=== PATIENT | female | born 1990 | race Caucasian/White ===

== ENCOUNTER → 2021-01-23 16:40 | Outpatient (CLI) | payer OTHER, SELFPAY ==
[2021-01-23 14:41] VITALS: BMI 23.8
[2021-01-23 17:34] LABS: Amphetamine Urine VISTA NEGATIVE (<1000 ng/mL); Barbiturate Urine VISTA NEGATIVE (< 200 ng/mL); Benzodiazepine Urine VISTA NEGATIVE (< 200 ng/mL); Cocaine Urine VISTA NEGATIVE (< 300 ng/mL); Ecstacy Urine VISTA NEGATIVE (< 500 ng/mL); Methadone Urine VISTA NEGATIVE (< 300 ng/mL); PCP Urine VISTA NEGATIVE (< 25 ng/mL); THC Urine VISTA NEGATIVE (< 50 ng/mL); Vista UDS pH Range 5
[2021-01-26 20:07] LABS: Chlamydia By Nucleic Acid AMP Negative (Negative)
[2021-01-26 20:59] LABS: Gonococcus By Nucleic Acid AMP Negative (Negative)
[2021-01-27 13:25] LABS: HPV Reflexed? NOT INDICATED
== END ==
PROVIDERS: Referring Provider Obstetrics & Gynecology; Visit Provider Obstetrics & Gynecology
DX: Z34.80 Encounter for supervision of other normal pregnancy, unspecified trimester (principal); Z12.4 Encounter for screening for malignant neoplasm of cervix
CPT/HCPCS: 80307; 87086; 87088; 87491; 87591; 88175; G0145

== ENCOUNTER → 2021-02-12 10:40 | Outpatient (CLI) | payer OTHER, SELFPAY ==
[2021-01-23 14:41] VITALS: BMI 23.8
[2021-02-12 11:09] LABS: Absolute Lymphocyte Count 1.15 X10^3/uL (0.83-4.51); Absolute Neutrophil Count 4.6 X10^3/uL (2.0-7.7); Basophil# 0.02 X10^3/uL; Basophil% 0.3 % (0-1); Eosinophil# 0.03 X10^3/uL; Eosinophils% 0.5 % (0-5); Hematocrit 37.5 % (37-47); Hemoglobin 12.4 g/dL (12.0-15.0); Lymphocyte # 1.15 X10^3/ul (0.83-4.51); Lymphocyte % 18.8 % (19-41); Mean Corp Hgb Conc 33.1 g/dL (32-36); Mean Corpuscular Hgb 28.3 pg (27.0-32.0); Mean Corpuscular Volume 85.6 fL (81-99); Mean Platelet Vol. 11.6 fl (6.2-12.0); Monocyte# 0.34 X10^3/uL; Monocyte% 5.6 % (0-10); NRBC Flagged by Analyzer 0 % (0-5); Neutrophil # 4.55 X10^3/uL (2.7-7.7); Neutrophil % 74.5 % (47-70); Platelet Count 186 K/mm3 (150-450); RBC Distribution Width CV 12.1 % (11.6-14.6); RBC Distribution Width SD 37.6 fl (35.1-43.9); Red Blood Count 4.38 M/mm3 (4.2-5.4); White Blood Count 6.1 K/mm3 (4.4-11.0)
[2021-02-12 11:48] LABS: NATERA MAILED SPECIMEN
[2021-02-12 12:21] LABS: HIV - WCH Non-Reactive (Nonreactive); Hepatitis B Surface Antigen Non-Reactive (Nonreactive); Hepatitis C Antibody Non-Reactive (Nonreactive); Rubella IgG Reactive (Nonreactive); Syphilis Antibodies Non-reactive
== END ==
PROVIDERS: Referring Provider Obstetrics & Gynecology; Visit Provider Obstetrics & Gynecology
DX: Z34.81 Encounter for supervision of other normal pregnancy, first trimester (principal)
CPT/HCPCS: 36415; 85025; 86703; 86762; 86780; 86803; 86850; 86900; 86901; 87340

== ENCOUNTER → 2021-03-18 | Outpatient (CLI) | payer OTHER, SELFPAY ==
[2021-03-18 11:24] VITALS: BMI 23.8
== END | disposition home or self-care (01) ==
PROVIDERS: Visit Provider Nurse Practitioner Women's Health
DX: R30.9 Painful micturition, unspecified (principal)
CPT/HCPCS: 87077; 87086; 87088

== ENCOUNTER 2021-05-14 22:45 | Outpatient (CLI) | payer OTHER, SELFPAY ==
--- NOTE | 2021-05-14 23:01 | OB.TRI.PN ---
Progress Notes Date of Service: 05/14/21 Progress Note: Patient presents for triage evaluation secondary to vagianl bleeding FHT: 150 Moderate variability pos accel no decels GA appropriate [place]: no regular Contractions Assessment and plan: cervix closed reassuring fht, reassuring maternal and status patient discharged to home to follow-up as scheduled. See problem list details for additional plan information. Charges/Coding Visit Charges Office Visits / Consults: 36810 OV L2 Est Assessment & Plan (1) Vaginal bleeding during : COMMENT: seen in triage 05/14 likely cervical no labor, cervix closed dc home
[2021-05-14 23:12] VITALS: PULSE 101; TEMP 37; BMI 25.1
[2021-05-15 00:20] LABS: Color, Urine Yellow (Yellow); Glucose, Dipstick Normal (Normal); Ketone-Dipstick Negative (Negative); Leukocyte Esterase-Dipstick Negative /ul (Negative); Nitrite-Dipstick Negative (Negative); Occult Blood-Urine Negative /ul (Negative); Protein-Dipstick Negative (Negative); Urine Bilirubin Dipstick Negative (Negative); Urine Clarity Clear (Clear); Urine Urobilinogen Normal (Normal); Urine pH 6.5 (5.0 - 8.0)
== END 2021-05-14 23:55 | disposition home or self-care (01) ==
LOC: WPOUT 22:55 → OBT 22:55
PROVIDERS: Visit Provider Obstetrics & Gynecology
DX: O46.90 Antepartum hemorrhage, unspecified, unspecified trimester (principal); Z3A.00 Weeks of gestation of pregnancy not specified
CPT/HCPCS: 59025; 59050; 81002; 87086; 87088; 99218; G0378

== ENCOUNTER → 2021-06-03 09:50 | Outpatient (CLI) | payer OTHER, SELFPAY ==
[2021-06-03 10:26] LABS: Absolute Lymphocyte Count 1.18 X10^3/uL (0.83-4.51); Absolute Neutrophil Count 5.3 X10^3/uL (2.0-7.7); Basophil# 0.03 X10^3/uL; Basophil% 0.4 % (0-1); Eosinophil# 0.04 X10^3/uL; Eosinophils% 0.6 % (0-5); Hematocrit 32.6 % (37-47); Hemoglobin 10.9 g/dL (12.0-15.0); Lymphocyte # 1.18 X10^3/ul (0.83-4.51); Mean Corp Hgb Conc 33.4 g/dL (32-36); Mean Corpuscular Hgb 28.8 pg (27.0-32.0); Mean Corpuscular Volume 86.2 fL (81-99); Mean Platelet Vol. 12.2 fl (6.2-12.0); Monocyte# 0.35 X10^3/uL; Monocyte% 5.1 % (0-10); NRBC Flagged by Analyzer 0 % (0-5); Neutrophil # 5.31 X10^3/uL (2.7-7.7); Neutrophil % 76.6 % (47-70); Platelet Count 142 K/mm3 (150-450); RBC Distribution Width CV 11.9 % (11.6-14.6); RBC Distribution Width SD 37.7 fl (35.1-43.9); Red Blood Count 3.78 M/mm3 (4.2-5.4); White Blood Count 6.9 K/mm3 (4.4-11.0)
[2021-06-03 10:35] LABS: Glucose Challenge Gest 1H 50g 132 mg/dL (70-140)
== END ==
PROVIDERS: Referring Provider Obstetrics & Gynecology; Visit Provider Obstetrics & Gynecology
DX: Z13.1 Encounter for screening for diabetes mellitus (principal)
CPT/HCPCS: 36415; 82950; 85025

== ENCOUNTER → 2021-07-01 11:41 | Outpatient (CLI) | payer OTHER, SELFPAY ==
[2021-07-01 11:52] LABS: Absolute Lymphocyte Count 1.36 X10^3/uL (0.83-4.51); Absolute Neutrophil Count 6.4 X10^3/uL (2.0-7.7); Basophil# 0.02 X10^3/uL; Basophil% 0.2 % (0-1); Eosinophil# 0.02 X10^3/uL; Eosinophils% 0.2 % (0-5); Hematocrit 37.1 % (37-47); Hemoglobin 12.1 g/dL (12.0-15.0); Lymphocyte # 1.36 X10^3/ul (0.83-4.51); Lymphocyte % 16.4 % (19-41); Mean Corp Hgb Conc 32.6 g/dL (32-36); Mean Corpuscular Hgb 27.6 pg (27.0-32.0); Mean Corpuscular Volume 84.5 fL (81-99); Mean Platelet Vol. 12.4 fl (6.2-12.0); Monocyte# 0.43 X10^3/uL; Monocyte% 5.2 % (0-10); NRBC Flagged by Analyzer 0 % (0-5); Neutrophil # 6.43 X10^3/uL (2.7-7.7); Neutrophil % 77.5 % (47-70); Platelet Count 137 K/mm3 (150-450); RBC Distribution Width CV 12.2 % (11.6-14.6); RBC Distribution Width SD 37.2 fl (35.1-43.9); Red Blood Count 4.39 M/mm3 (4.2-5.4); White Blood Count 8.3 K/mm3 (4.4-11.0)
== END ==
PROVIDERS: Referring Provider Obstetrics & Gynecology; Visit Provider Obstetrics & Gynecology
DX: O99.019 Anemia complicating pregnancy, unspecified trimester (principal); D64.9 Anemia, unspecified; Z3A.00 Weeks of gestation of pregnancy not specified
CPT/HCPCS: 36415; 85025

== ENCOUNTER → 2021-07-29 11:34 | Outpatient (CLI) | payer OTHER, SELFPAY ==
[2021-07-29 12:01] LABS: Absolute Neutrophil Count 5.5 X10^3/uL (2.0-7.7); Basophil# 0.03 X10^3/uL; Basophil% 0.4 % (0-1); Eosinophil# 0.04 X10^3/uL; Eosinophils% 0.5 % (0-5); Hematocrit 34.7 % (37-47); Hemoglobin 11.2 g/dL (12.0-15.0); Lymphocyte % 18.7 % (19-41); Mean Corp Hgb Conc 32.3 g/dL (32-36); Mean Corpuscular Hgb 27.1 pg (27.0-32.0); Mean Platelet Vol. 12.2 fl (6.2-12.0); Monocyte# 0.49 X10^3/uL; Monocyte% 6.5 % (0-10); NRBC Flagged by Analyzer 0 % (0-5); Neutrophil # 5.51 X10^3/uL (2.7-7.7); Neutrophil % 73.5 % (47-70); Platelet Count 134 K/mm3 (150-450); RBC Distribution Width CV 12.4 % (11.6-14.6); RBC Distribution Width SD 37.9 fl (35.1-43.9); Red Blood Count 4.13 M/mm3 (4.2-5.4); White Blood Count 7.5 K/mm3 (4.4-11.0)
== END ==
PROVIDERS: Referring Provider Obstetrics & Gynecology; Visit Provider Obstetrics & Gynecology
DX: Z36.85 Encounter for antenatal screening for Streptococcus B (principal); O99.113 Other diseases of the blood and blood-forming organs and certain disorders involving the immune mechanism complicating pregnancy, third trimester; D69.6 Thrombocytopenia, unspecified; Z3A.35 35 weeks gestation of pregnancy
CPT/HCPCS: 36415; 85025; 87077; 87081; 87186

== ENCOUNTER 2021-08-13 04:35 | Inpatient (IN) | payer OTHER, SELFPAY ==
[2021-08-12 19:34] VITALS: BMI 27.7
[2021-08-12 19:38] VITALS: BP 128/89; PULSE 102; TEMP 36.4; O2SAT 98
[2021-08-12] MEDS: Acetaminophen 500 MG Tablet 1000 MG PO (20:47)
[2021-08-12] MEDS: Ondansetron 8 MG Tablet 4 MG PO (20:47)
[2021-08-12 22:55] VITALS: BP 123/79; PULSE 80; TEMP 36.3; O2SAT 100
[2021-08-12 23:07] LABS: Absolute Lymphocyte Count 1.61 X10^3/uL (0.83-4.51); Absolute Neutrophil Count 6.5 X10^3/uL (2.0-7.7); Basophil# 0.04 X10^3/uL; Basophil% 0.5 % (0-1); Eosinophil# 0.01 X10^3/uL; Eosinophils% 0.1 % (0-5); Hematocrit 33.2 % (37-47); Lymphocyte # 1.61 X10^3/ul (0.83-4.51); Lymphocyte % 18.4 % (19-41); Mean Corp Hgb Conc 33.1 g/dL (32-36); Mean Corpuscular Hgb 26.8 pg (27.0-32.0); Mean Platelet Vol. 12.9 fl (6.2-12.0); Monocyte# 0.58 X10^3/uL; Monocyte% 6.6 % (0-10); NRBC Flagged by Analyzer 0 % (0-5); Neutrophil # 6.46 X10^3/uL (2.7-7.7); Neutrophil % 74.1 % (47-70); Platelet Count 142 K/mm3 (150-450); RBC Distribution Width CV 12.6 % (11.6-14.6); RBC Distribution Width SD 37.3 fl (35.1-43.9); White Blood Count 8.7 K/mm3 (4.4-11.0)
[2021-08-13] VITALS (42 sets, daily range): BP systolic 93–116; BP diastolic 55–82; PULSE 6–111; RESP 18; TEMP 36.2–37.1; O2SAT 97–100
[2021-08-13] MEDS: 0.9 % NaCl (Sterile) Posiflush 10 mL IV ×3 (00:01→03:03)
[2021-08-13] MEDS: Lactated Ringers 1,000 ML 999 ML IV (03:03)
[2021-08-13] MEDS: Ondansetron 4 MG/2 ML Vial IV (06:55)
[2021-08-13] MEDS: 0.9% Saline Lock 10 ML Syringe IV (06:55)
[2021-08-13] MEDS: Lactated Ringers 1,000 ML 50 ML IV (07:00)
[2021-08-13] MEDS: Lactated Ringers 500 ML 999 ML IV (07:02)
--- NOTE | 2021-08-13 07:21 | HP.PCM.OB_ITS ---
HPI - General General Date of Admission: 08/13/21 HPI Narrative LIANG DISLA, is a 30 F who presents IAL regular ctx and made cervical change from 1-4 cm. she denies any vb or lof admits good fm Maternal Data Information MARILUZ Calculator Estimated Delivery Date Method Current WG Current Estimate 08/27/21 LMP (Certain) 38w 0d PFSH PFSH Medical History Choroid plexus cyst Home Medications prenat.vits,marc,[id number] 1 tab PO DAILY 01/22/21 [History Last Taken 08/11/21] Allergy/AdvReac Type Severity Reaction Status Date / Time Sulfa (Sulfonamide Allergy Intermediate hives Verified 08/12/21 19:51 Antibiotics) Family History Mother Endometriosis Father Hypertension Surgical History History of exploratory laparotomy Social History adopted: No household members: significant other, children and other details: BF Elfego has daughter number of children: 1 current occupational status: employed current occupation: [employer] pets and animals: Yes pets and animals: dog(s) Smoking Status: Never smoker alcohol intake: never substance use type: does not use History 2 Elective abortions Hx Para 1 Spontaneous abortions Hx # Term Pregnancies Ectopic pregnancies Hx # Pregnancies Multiple births # of living children 1 Past Pregnancies Del. Date Name GA/Weeks Outcome Route Bth Weight Infant Gen Labor Lgth Anesthesia Del Locatn Provider FOB 06/03/15 [facility] live - full term 6# 12oz Female 12 h our epidural Katie/[facility] [place] Delivery Date: 06/03/15 states episiotomy. Induced when 3cm and thin cervix Judy Mendez Visit Details Expected Delivery Route/Plan Labor Preferences- CB/BF classes: no labor support person: Elfego labor intervention preferences: none pain management options preferred: epidural cut cord/dad catch: yes : yes PP control planned: discussed discussed possible routes of delivery and associated risks: [] special requests: none, very laid back Plans flu vaccine: declines tdap vaccine: given rhogam: na LARC form signed: yes Problem list reviewed and updated with the most current plan of care details and appropriate orders placed. Relevant counseling for the gestational age provided. Continue routine care and follow up unless otherwise noted in visit notes/problem list details OB Flowsheet Initial Weight: Not Recorded Date -?-?-?-?-?-?-?-?-?-?-?-?- EGA Weight BP Urine Prot -?-?-?-?-?-?-?-?-?-?-?-?- Glucose FHR FuHt Pres Dilation -?-?-?-?-?-?-?-?-?-?-?-?- Effaced St Visit Note 01/23/21 -?-?-?-?-?-?-?-?-?-?-?-?- 9w 1d 134 lb 4 oz 128/70 -?-?-?-?-?-?-?-?-?-?-?-?- 175 -?-?-?-?-?-?-?-?-?-?-?-?- GP - CRL 22mm co nsistent with LMP 02/19/21 -?-?-?-?-?-?-?-?-?-?-?-?- 13w 0d 132 lb 6 oz 118/70 Trac e -?-?-?-?-?-?-?-?-?-?-?-?- Negative 162 -?-?-?-?-?-?-?-?-?-?-?-?- -NO VB, LOF. N IPT today LR, Girl. PRR. US anatomy MFM ordered. 03/18/21 -?-?-?-?-?-?-?-?-?-?-?-?- 16w 6d 137 lb 4 oz 118/64 Nega tive -?-?-?-?-?-?-?-?-?-?-?-?- Negative 152 -?-?-?-?-?-?-?-?-?-?-?-?- -no VB, LOF. c/o lower left pelvic pain, goes into back X 1 week. Heat helps. Unable to give UA-will RTO for that later today. Consider chiropractor. Call if worsens 04/15/21 -?-?-?-?-?-?-?-?-?-?-?-?- 20w 6d 142 lb 4 oz 120/82 Nega tive -?-?-?-?--?-?-?-?-?-?-?-?- Negative 140 -?-?-?-?-?-?-?-?-?-?-?-?- GP - no LOF, VB, DFM, ctx. Reviewed choroid plexus cyst - NIPT nl. 05/13/21 -?-?-?-?-?-?-?-?-?-?--?-?- 24w 6d 151 lb 100/82 Negative -?-?-?-?-?-?-?-?-?-?-?-?- Negative 145 25 -?-?-?-?-?-?-?-?-?-?-?-?- SM- no vb lof go od fm no reuglar ctx 06/03/21 -?-?-?-?-?-?-?-?-?-?-?-?- 27w 6d 151 lb 6 oz 120/60 Trac e -?-?-?-?-?-?-?-?-?-?-?-?- Negative 151 27 -?-?-?-?-?-?-?-?-?-?-?-?- MH-NO VB, LOF. G ood FM. 28 wk labs, larc, tdap. Anemia and will start FE 06/17/21 -?-?-?-?-?-?-?-?-?-?-?-?- 29w 6d 152 lb 4 oz 124/70 Nega tive -?-?-?-?-?-?-?-?-?-?-?-?- 250 g/dL 155 29 -?-?-?-?-?-?-?-?-?-?-?-?- JV- no lof, vagi nal bleeding, or dec fm. no complaints today. 07/01/21 -?-?-?-?-?--?-?-?-?-?-?-?- 31w 6d 152 lb 112/80 Negative -?-?-?-?-?-?-?-?-?-?-?-?- Negative 150 31 -?-?-?-?-?-?-?-?-?-?-?-?- JV- no lof, vagi nal bleeding, or dec m. plan for rpt cbc today 07/15/21 -?-?-?-?-?-?-?-?-?-?-?-?- 33w 6d 154 lb 8 oz 120/72 Nega tive -?-?-?-?-?-?-?-?-?-?-?-?- Negative 151 33 -?-?-?-?-?-?-?-?-?-?-?-?- JV- some round l igament discomfort. possible pupps. 07/22/21 -?-?-?-?-?-?-?-?-?-?-?-?- 34w 6d 156 lb 2 oz 124/80 Nega tive -?-?-?-?-?-?-?-?-?-?-?-?- 100 g/dL 147 34 1 -?-?-?-?-?-?-?-?-?-?-?-?- 50 -3 JV- no lof , vaginal bleeding or dec fm. pt feels pressure in front and b ack. PTL precautions discussed 07/29/21 -?-?-?-?-?-?-?-?-?-?-?-?- 35w 6d 155 lb 112/70 Negative -?-?-?-?-?-?-?-?-?-?-?-?- Negative 1,438 36 1 -?-?-?-?-?-?-?-?-?-?-?-?- 50 -4 JV- no lof ,vaginal bleeding or dec fm GBS collected early due to contraction pain and dilation at 34 weeks. rpt plts today. 08/06/21 -?-?-?-?-?-?-?-?-?-?-?-?- 37w 0d 156 lb 4 oz 104/70 Nega tive -?-?-?-?-?-?-?-?-?-?-?-?- Negative 160 37 1 -?-?-?-?-?-?-?-?-?-?-?-?- 50 -3 JV- no lof ,vaginal bleeding, or dec fm. GBS pos. 08/13/21 -?-?-?-?-?-?-?-?-?-?-?-?- 38w 0d 156 lb 9.6 oz 128/89 123/79 103/64 103/71 104/74 -?-?-?-?-?-?-?-?-?-?-?-?- -?-?-?-?-?-?-?-?-?-?-?-?- NST FHR Rate Baby A Baseline: 140 Variability:: Moderate Accelerations:: 15 x 15 Decelerations:: None NST Reactive:: Yes FHR Category:: Category I Uterine Activity:: q3-5 ROS Constitutional Constitutional: Reports systems reviewed and no addt'l complaints, except as documented ENT HEENT: Reports systems reviewed and no addt'l complaints, except as documented Cardiovascular Cardiovascular: Reports systems reviewed and no addt'l complaints, except as documented Respiratory/Chest Respiratory/Chest: Reports systems reviewed and no addt'l complaints, except as documented Gastrointestinal Gastrointestinal: Reports systems reviewed and no addt'l complaints, except as documented and nausea; Denies abdominal pain Genitourinary Genitourinary: Reports systems reviewed and no addt'l complaints, except as documented, contractions Details: present and frequency (regular ) and movement Details: present Musculoskeletal Musculoskeletal: Reports systems reviewed and no addt'l complaints, except as documented Integumentary Integumentary: Reports as per HPI Neurologic Neurologic: Reports systems reviewed and no addt'l complaints, except as documented Endocrine Endocrinology: Reports systems reviewed and no addt'l complaints, except as documented Vital Signs Vital Signs Vital Signs: 08/12/21 19:38 08/12/21 22:55 08/13/21 01:21 Temperature 97.6 F L 97.3 F L Temperature Source Temporal Pulse Rate 102 H 80 111 H Blood Pressure 128/89 H 123/79 H 103/64 BP Systolic 128 123 103 BP Diastolic 89 79 64 Pulse Ox 98 100 08/13/21 01:22 08/13/21 06:48 08/13/21 06:49 Temperature 97.9 F 97.5 F L Temperature Source Temporal Pulse Rate 84 101 H Blood Pressure 103/71 BP Systolic 103 BP Diastolic 71 Pulse Ox 97 Weight Weight: 156 lb 9.6 oz Body Mass Index (BMI) 27.7 Physical Exam Const alert, oriented x3 and healthy appearing Constitutional Narrative: uncomfortable with contractions HEENT normocephalic and moist oral mucous membranes Head and Scalp: atraumatic Neck full ROM, no lymphadenopathy, supple and thyroid normal General: trachea midline Thyroid: thyroid normal Lymph Lymphatic: no lymphadenopathy noted Chest inspection of chest normal Resp normal respiratory effort Cardio regular rate GI normal to inspection, nondistended, normoactive bowel sounds, soft to palpation and non-tender Inspection: gravid external exam normal Bimanual Exam - Vag & Uterus: uterus non-tender Manual OB Exam: estimated gestational size appropriate, presentation cephalic, dilated, effaced and station Extremity normal to inspection General Extremity: Negative for edema Skin no rashes or lesions noted Neuro deep tendon reflexes 2+ bilaterally Motor Exam: strength 5/5 throughout and clonus absent Psych mental status grossly normal Labs Labs Labs: Blood Type B POSITIVE Antibody Screen NEGATIVE Hct 33.2 % (37-47) L Hgb 11.0 g/dL (12.0-15.0) L Syphilis Total Ab Non-reactive Rubella IgG Antibody Reactive (Nonreactive) Hep Bs Antigen Non-Reactive (Nonreactive) Neisseria gonorrhoeae DNA (SNOW) Negative (Negative) HIV 1&2 Antibody Non-Reactive (Nonreactive) Glucose 1 Hr 50 gm 132 mg/dL (70-140) Assessment & Plan (1) Positive GBS test: COMMENT: needs ATB in labor. (2) Temporary low platelet count: COMMENT: needs repeat cbc in 4 weeks (3) Influenza vaccination declined: (4) History of tetanus, diphtheria, and acellular pertussis booster vaccination (Tdap): COMMENT: 06/03/21 (5) Anemia during : COMMENT: ADD FE recheck cbc 07/04/2021 (6) Choroid plexus cyst: COMMENT: right (7) : QUALIFIERS: Weeks of gestation: 37 weeks Qualified Code(s): Z3A.37 - 37 weeks gestation of COMMENT: NIPT low risk, nl anatomy (8) Nausea/vomiting in : COMMENT: phenergan Rx (9) Supervision of other normal : COMMENT: PRR Grav 2/ MARILUZ 08/27/21, girl, PC Eugene BF: Kaylie) (10) Active labor at term: COMMENT: start pcn for gbs prophylaxis, epi prn arom prn, exp management
[2021-08-13] MEDS: fentaNYL-bupivacaine (epidural) 100 ML BAG EPIDURAL (07:43)
[2021-08-13] MEDS: proCHLORPERazine 10 MG/2 ML Vial IV (09:00)
[2021-08-13] MEDS: Oxytocin 30 units/NS 500 ml 30 UNITS/500 ML IV.SOLN IV (09:37)
[2021-08-13] MEDS: Lactated Ringers 1,000 ML 200 ML IV (12:45)
[2021-08-13] MEDS: Oxytocin 30 units/NS 500 ml 30 UNITS/500 ML IV.SOLN 334 UNITS IV (13:36)
--- NOTE | 2021-08-13 13:45 | OP.PCM_ITS ---
Assessment & Plan (1) Active labor at term: COMMENT: start pcn for gbs prophylaxis, epi prn arom prn, exp management (2) Positive GBS test: COMMENT: needs ATB in labor. Maternal Data Information MARILUZ Calculator Estimated Delivery Date Method Current WG Current Estimate 08/27/21 LMP (Certain) 38w 0d Vaginal Delivery Operative Information Date of Procedure: 08/13/21 Pre-Operative Diagnosis: IAL Post-Operative Diagnosis: same Surgery / Procedure Performed: Spontaneous Vaginal Delivery Type of Anesthesia: Epidural Special Medications: none Estimated Blood Loss: 100 Fluids Replaced: crystalloid Findings Description of Procedure: Patient began pushing and delivered the head in the ADELAIDE presentation. The head was delivered atraumatically . The anterior and posterior shoulders delivered without complication followed by the rest of the and the was placed on the maternal abdomen. Delayed cord clamping was employed for approximately 60 seconds. Cord was clamped and cut and gentle traction was applied to the cord and the placenta delivered spontaneously immediately following it was noted to be intact with three-vessel cord. The perineum and vagina were inspected and noted to have no laceration. EBL was 100 cc. Patient and infant tolerated delivery well. Presentation: [place] Amniotic Membrane Rupture Type: Artificial Amniotic Fluid Description: Clear Placental Delivery Description: Spontaneous Placenta Disposition: [facility] Cord Vessel Description: 3 Vessels Cord Entanglement: None Delayed Cord Clamping: Yes Post Vaginal Delivery Medications Given After Delivery: IV Pitocin Episiotomy Description: None Laceration: None Complication Complications: None Procedures Urinary/Genital [id number]: [id number] Vaginal Delivery [facility]
--- NOTE | 2021-08-13 13:46 | PCM.DC ---
Discharge Instructions Diet Discharge Diet: No restrictions Activity Discharge Activity: Return to Normal Activity, May Not Drive (while taking narcotic pain medications.) and May Shower May resume sexual activity in: 4-6 weeks Dressing / Incision Call your doctor if your incision/area has: Continuous Slow Oozing, Sudden Increased Bleeding, Increased Pain/ Swelling, Increased Redness and Foul Smelling Discharge Follow Up Care Please Follow Up With: Ofelia Ramirez MD When: Call [phone] to make an appointment with your doctor in 6 weeks. If you had elevated blood pressure or 4th degree laceration, you will need to be seen in 2 weeks. Test Results: Test results from this visit will be discussed in further detail at your follow-up appointment, if applicable. Discharge Plan Admission Admit Date/Time: 08/13/21 04:35 Attending Provider: Ofelia Ramirez Primary Care Provider: Care Physician,Yaa Primary Discharge Orders/Prescriptions Prescriptions: No Action prenat.vits,marc,[id number] Tablet 1 tab PO DAILY RF: 0 Referrals / Follow Up: Care Physician,No Primary [Primary Care Provider] - Disposition Disposition (needs filled in before D/C Order can be placed): Home, Self Care
[2021-08-14 00:27] VITALS: BP 119/65; PULSE 91; RESP 18; TEMP 37.2
[2021-08-14 03:39] VITALS: BP 114/71; PULSE 87; RESP 18
[2021-08-14] MEDS: Acetaminophen 500 MG Tablet 1000 MG PO (07:04)
[2021-08-14 10:19] VITALS: BP 104/73; PULSE 73; RESP 16; TEMP 36.8
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
--- NOTE | 2021-08-14 12:37 | PCM.PN.OB ---
Subjective Subjective Patient doing well without complaints. Tolerating PO. Ambulating and voiding without difficulty. feeding well. Denies chest pain, shortness of breath, calf pain/swelling, fevers, chills, lightheadedness. Objective Data Objective Data Vital Signs: Vital Signs Temp Pulse Resp BP Pulse Ox 98.3 F 73 16 104/73 99 08/14/21 10:19 08/14/21 10:19 08/14/21 10:19 08/14/21 10:19 08/13/21 12:34 Oxygen Delivery Method Room Air Weight: 156 lb 9.6 oz Body Mass Index (BMI) 27.7 Intake & Output: Intake and Output for Last 24 Hours 08/12/21 08/13/21 08/14/21 23:59 23:59 23:59 Intake Total 4792.10 / 4792.10 Output Total 2100 / 2100 Balance 2692.10 / 2692.10 Lab / Micro Data Result Diagrams: 08/12/21 22:45 Micro: Microbiology 08/13/21 07:18 Nasal Secretion SARS-CoV-2 Antigen (Rapid) - Final ROS Constitutional Constitutional: Reports systems reviewed and no addt'l complaints, except as documented Cardiovascular Cardiovascular: Reports systems reviewed and no addt'l complaints, except as documented Respiratory/Chest Respiratory/Chest: Reports systems reviewed and no addt'l complaints, except as documented Gastrointestinal Gastrointestinal: Reports systems reviewed and no addt'l complaints, except as documented Physical Exam Const alert, oriented x3 and no apparent distress HEENT Head and Scalp: atraumatic Resp normal respiratory effort GI soft to palpation and non-tender Bimanual Exam - Vag & Uterus: uterus non-tender Uterus Palpation: uterus fundus firm (below Umbilicus) Assessment & Plan (1) Vaginal delivery: COMMENT: sm girl tara [place] PLAN: s/p PPD # 1 1. routine post delivery care 2. breast feeding- support given 3. rh positive 4. rubella immune
[2021-08-14 13:10] VITALS: BP 109/67; PULSE 97; RESP 16; TEMP 37.2; O2SAT 96
[2021-08-14 16:06] VITALS: BP 117/66; PULSE 70; RESP 16; TEMP 36.6
--- NOTE | 2021-08-18 17:37 | NURSING ---
Follow up phone call attempted NO answer left voicemail
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
== END 2021-08-14 16:40 | disposition home or self-care (01) | DRG 806 ==
LOC: WPOUT 04:38 → WP 04:38
PROVIDERS: Admitting Provider Obstetrics & Gynecology; Referring Provider Obstetrics & Gynecology; Visit Provider Obstetrics & Gynecology
DX: O99.354 Diseases of the nervous system complicating childbirth (principal); O99.12 Other diseases of the blood and blood-forming organs and certain disorders involving the immune mechanism complicating childbirth; Z37.0 Single live birth; D69.6 Thrombocytopenia, unspecified; O99.02 Anemia complicating childbirth; D64.9 Anemia, unspecified; O99.824 Streptococcus B carrier state complicating childbirth; G93.0 Cerebral cysts; O21.2 Late vomiting of pregnancy; Z3A.38 38 weeks gestation of pregnancy
CPT/HCPCS: 59025; 59050; 85025; 86850; 86900; 86901; 87426; 99218; J7120; A4216; G0378; J2405

== ENCOUNTER 2021-09-24 11:46 | Outpatient (CLI) | payer OTHER, SELFPAY ==
[2021-09-24 12:10] LABS: Basophil# 0.02 X10^3/uL; Basophil% 0.5 % (0-1); Eosinophil# 0.05 X10^3/uL; Eosinophils% 1.2 % (0-5); Hematocrit 40.6 % (37-47); Hemoglobin 12.7 g/dL (12.0-15.0); Lymphocyte % 43.8 % (19-41); Mean Corp Hgb Conc 31.3 g/dL (32-36); Mean Corpuscular Hgb 26.2 pg (27.0-32.0); Mean Corpuscular Volume 83.9 fL (81-99); Mean Platelet Vol. 11.3 fl (6.2-12.0); Monocyte# 0.27 X10^3/uL; Monocyte% 6.6 % (0-10); NRBC Flagged by Analyzer 0 % (0-5); Neutrophil # 1.96 X10^3/uL (2.7-7.7); Neutrophil % 47.7 % (47-70); Platelet Count 199 K/mm3 (150-450); RBC Distribution Width CV 14.2 % (11.6-14.6); RBC Distribution Width SD 43.8 fl (35.1-43.9); Red Blood Count 4.84 M/mm3 (4.2-5.4); White Blood Count 4.1 K/mm3 (4.4-11.0)
[2021-09-24 12:53] LABS: hCG Titer Quant., Serum < 1 mIU/mL (1-3)
== END 2021-09-24 23:59 | disposition home or self-care (01) ==
LOC: PAVLAB 11:50
PROVIDERS: Referring Provider Obstetrics & Gynecology; Visit Provider Obstetrics & Gynecology
DX: N92.6 Irregular menstruation, unspecified (principal)
CPT/HCPCS: 36415; 84702; 85025

== ENCOUNTER → 2022-10-29 | Outpatient (CLI) | payer OTHER, SELFPAY ==
[2022-11-02 00:07] LABS: Chlamydia By Nucleic Acid AMP Negative (Negative)
[2022-11-02 08:58] LABS: Gonococcus By Nucleic Acid AMP Negative (Negative)
== END | disposition home or self-care (01) ==
LOC: LABSPEC 15:51
PROVIDERS: Visit Provider Obstetrics & Gynecology
DX: Z34.90 Encounter for supervision of normal pregnancy, unspecified, unspecified trimester (principal)
CPT/HCPCS: 87086; 87088; 87491; 87591

== ENCOUNTER → 2022-11-03 | Outpatient (CLI) | payer OTHER, SELFPAY ==
[2022-11-03 16:58] LABS: Absolute Lymphocyte Count 1.37 X10^3/uL (0.83-4.51); Absolute Neutrophil Count 4.4 X10^3/uL (2.0-7.7); Basophil# 0.02 X10^3/uL; Basophil% 0.3 % (0-1); Eosinophil# 0.03 X10^3/uL; Eosinophils% 0.5 % (0-5); Hematocrit 39.2 % (37-47); Hemoglobin 12.6 g/dL (12.0-15.0); Lymphocyte # 1.37 X10^3/ul (0.83-4.51); Lymphocyte % 22.2 % (19-41); Mean Corp Hgb Conc 32.1 g/dL (32-36); Mean Corpuscular Volume 87.1 fL (81-99); Mean Platelet Vol. 11.9 fl (6.2-12.0); Monocyte# 0.35 X10^3/uL; Monocyte% 5.7 % (0-10); NRBC Flagged by Analyzer 0 % (0-5); Neutrophil # 4.39 X10^3/uL (2.7-7.7); Platelet Count 164 K/mm3 (150-450); RBC Distribution Width CV 12.3 % (11.6-14.6); RBC Distribution Width SD 39.5 fl (35.1-43.9); White Blood Count 6.2 K/mm3 (4.4-11.0)
[2022-11-03 17:14] LABS: NATERA MAILED SPECIMEN
[2022-11-03 18:51] LABS: HIV - WCH Non-Reactive (Nonreactive); Hepatitis B Surface Antigen Non-Reactive (Nonreactive); Hepatitis C Antibody Non-Reactive (Nonreactive); Rubella IgG Reactive (Nonreactive); Syphilis Antibodies Non-reactive
== END | disposition home or self-care (01) ==
LOC: LAB 16:12
PROVIDERS: Visit Provider Obstetrics & Gynecology
DX: Z34.81 Encounter for supervision of other normal pregnancy, first trimester (principal)
CPT/HCPCS: 36415; 85025; 86703; 86762; 86780; 86803; 86850; 86900; 86901; 87340

== ENCOUNTER → 2023-02-25 | Outpatient (CLI) | payer OTHER, SELFPAY ==
[2023-02-25 10:05] LABS: Absolute Lymphocyte Count 1.43 X10^3/uL (0.83-4.51); Absolute Neutrophil Count 4.6 X10^3/uL (2.0-7.7); Basophil# 0.02 X10^3/uL; Basophil% 0.3 % (0-1); Eosinophil# 0.05 X10^3/uL; Eosinophils% 0.8 % (0-5); Hematocrit 34.8 % (37-47); Hemoglobin 11.1 g/dL (12.0-15.0); Lymphocyte # 1.43 X10^3/ul (0.83-4.51); Mean Corp Hgb Conc 31.9 g/dL (32-36); Mean Corpuscular Volume 87.7 fL (81-99); Mean Platelet Vol. 12.1 fl (6.2-12.0); Monocyte# 0.36 X10^3/uL; Monocyte% 5.5 % (0-10); NRBC Flagged by Analyzer 0 % (0-5); Neutrophil # 4.59 X10^3/uL (2.7-7.7); Neutrophil % 70.8 % (47-70); Platelet Count 149 K/mm3 (150-450); RBC Distribution Width CV 12.1 % (11.6-14.6); RBC Distribution Width SD 39.2 fl (35.1-43.9); Red Blood Count 3.97 M/mm3 (4.2-5.4); White Blood Count 6.5 K/mm3 (4.4-11.0)
[2023-02-25 10:20] LABS: Glucose Challenge Gest 1H 50g 98 mg/dL (70-140)
[2023-02-25 11:15] LABS: HIV - WCH Non-Reactive (Nonreactive); Syphilis Antibodies Non-reactive
== END | disposition home or self-care (01) ==
PROVIDERS: Referring Provider Obstetrics & Gynecology; Visit Provider Obstetrics & Gynecology
DX: Z34.90 Encounter for supervision of normal pregnancy, unspecified, unspecified trimester (principal)
CPT/HCPCS: 36415; 82950; 85025; 86703; 86780

== ENCOUNTER → 2023-03-16 | Outpatient (CLI) | payer OTHER, SELFPAY | END | disposition home or self-care (01) | PROVIDERS: Visit Provider Registered Nurse | DX: O99.891 Other specified diseases and conditions complicating pregnancy (principal); N89.8 Other specified noninflammatory disorders of vagina; Z3A.00 Weeks of gestation of pregnancy not specified | CPT/HCPCS: 87070; 87077; 87086; 87205 ==

== ENCOUNTER → 2023-03-25 | Outpatient (CLI) | payer OTHER, SELFPAY ==
[2023-03-25 11:05] LABS: Hematocrit 36.2 % (37-47); Hemoglobin 11.4 g/dL (12.0-15.0); Mean Corp Hgb Conc 31.5 g/dL (32-36); Mean Corpuscular Hgb 27.2 pg (27.0-32.0); Mean Corpuscular Volume 86.4 fL (81-99); Mean Platelet Vol. 12.2 fl (6.2-12.0); Platelet Count 161 K/mm3 (150-450); RBC Distribution Width CV 12.6 % (11.6-14.6); RBC Distribution Width SD 39.4 fl (35.1-43.9); Red Blood Count 4.19 M/mm3 (4.2-5.4); White Blood Count 6.4 K/mm3 (4.4-11.0)
== END | disposition home or self-care (01) ==
PROVIDERS: Referring Provider Registered Nurse; Visit Provider Registered Nurse
DX: O99.119 Other diseases of the blood and blood-forming organs and certain disorders involving the immune mechanism complicating pregnancy, unspecified trimester (principal); D69.6 Thrombocytopenia, unspecified; Z3A.00 Weeks of gestation of pregnancy not specified
CPT/HCPCS: 36415; 85027

== ENCOUNTER → 2023-05-06 | Outpatient (CLI) | payer OTHER, SELFPAY | END | disposition home or self-care (01) | LOC: LABSPEC 16:17 | PROVIDERS: Referring Provider Obstetrics & Gynecology; Visit Provider Obstetrics & Gynecology | DX: Z34.90 Encounter for supervision of normal pregnancy, unspecified, unspecified trimester (principal) | CPT/HCPCS: 87081 ==

== ENCOUNTER 2023-05-26 14:00 | Inpatient (IN) | payer OTHER, SELFPAY ==
[2023-05-26] VITALS (44 sets, daily range): BP systolic 94–157; BP diastolic 56–81; PULSE 79–123; RESP 16; TEMP 36.3–36.8; O2SAT 98–100; BMI 29.4
[2023-05-26] MEDS: Lactated Ringers 1,000 ML 50 ML IV (14:35)
[2023-05-26] MEDS: LACTATED RINGERS 500 ML 999 ML IV (14:36)
[2023-05-26 14:49] LABS: Absolute Neutrophil Count 7.4 X10^3/uL (2.0-7.7); Basophil# 0.04 X10^3/uL; Basophil% 0.4 % (0-1); Eosinophil# 0.04 X10^3/uL; Eosinophils% 0.4 % (0-5); Hemoglobin 11.2 g/dL (12.0-15.0); Lymphocyte % 17.4 % (19-41); Mean Corp Hgb Conc 31.1 g/dL (32-36); Mean Corpuscular Hgb 24.8 pg (27.0-32.0); Mean Corpuscular Volume 79.8 fL (81-99); Mean Platelet Vol. 12.4 fl (6.2-12.0); Monocyte# 0.56 X10^3/uL; Monocyte% 5.7 % (0-10); NRBC Flagged by Analyzer 0 % (0-5); Neutrophil # 7.39 X10^3/uL (2.7-7.7); Neutrophil % 75.7 % (47-70); Platelet Count 178 K/mm3 (150-450); RBC Distribution Width CV 14.2 % (11.6-14.6); RBC Distribution Width SD 41.2 fl (35.1-43.9); Red Blood Count 4.51 M/mm3 (4.2-5.4); White Blood Count 9.8 K/mm3 (4.4-11.0)
[2023-05-26] MEDS: fentaNYL-bupivacaine (epidural) 100 ML BAG EPIDURAL (15:16)
[2023-05-26 15:32] LABS: Syphilis Antibodies Non-reactive
[2023-05-26] MEDS: Mag Hydrox/Al Hydrox/Simeth 30 ML UDC PO (17:43)
[2023-05-26] MEDS: 0.9% Saline Lock 10 ML Syringe IV (17:43)
[2023-05-26] MEDS: Ondansetron 4 MG/2 ML Vial IV (17:43)
[2023-05-26] MEDS: Oxytocin 10 UNITS/ML Vial IM (19:22)
[2023-05-26] MEDS: Oxytocin 15 Units/NS 250ml 15 UNITS/250 ML IV.SOLN 83 UNITS IV (19:22)
--- NOTE | 2023-05-26 19:43 | HP.PCM.OB_ITS ---
HPI - General General Date of Admission: 05/26/23 HPI Narrative LIANG DISLA, is a 32 F who presents in active labor 6 to 7 cm dilated with regular painful contractions. Patient denies any vaginal bleeding or admits good movement denies any loss of fluid. Maternal Data Information MARILUZ Calculator Estimated Delivery Date Method Current WG Current Estimate 05/30/23 LMP (Certain) 39w 3d PFSH PFSH Medical History Choroid plexus cyst Irregular menstrual bleeding Vaginal delivery Home Medications prenat.vits,marc,muo-pwik-inkbv 1 tab PO DAILY 01/22/21 [History Last Taken 05/25/23] metoclopramide HCl 10 mg tablet (Reglan) 10 mg PO Q6H PRN nausea and vomiting #60 tabs 10/29/22 [Rx Last Taken Unknown] Allergy/AdvReac Type Severity Reaction Status Date / Time Sulfa (Sulfonamide Allergy Intermediate hives Verified 05/26/23 14:32 Antibiotics) Family History Mother Endometriosis Father Hypertension Surgical History History of exploratory laparotomy Social History adopted: No household members: significant other, children and other details: IKE Telles has daughter number of children: 2 current occupational status: employed current occupation: [employer] pets and animals: Yes pets and animals: dog(s) history of recent travel: No Smoking Status: Never smoker alcohol intake: never substance use type: does not use well-balanced diet: daily or most days caffeine: Yes Type: coffee seatbelt use: always do you feel safe at home: Yes additional social history: Naren Ordaz History 3 Elective abortions Hx Para 2 Spontaneous abortions Hx # Term Pregnancies Ectopic pregnancies Hx # Pregnancies Multiple births # of living children 2 Past Pregnancies Del. Date Name GA/Weeks Outcome Route Bth Weight Gen Labor Lgth Anesthesia Del Locatn Provider FOB 06/03/15 Eugene live - full term 6# 12oz Female 12 h our epidural Katie/[place] José Miguel 08/13/21 Jerry 38 live - full term Female [facility] Ashley Telles Delivery Date: 06/03/15 Last Updated by: Judy Mendez ORE MINER, ORE MINER-C states episiotomy. Induced when 3cm and thin cervix Visit Details Expected Delivery Route/Plan Labor Preferences- labor support person: Elfego labor intervention preferences:none pain management options preferred:epidural cut cord/dad catch: yes : yes PP control planned: [] discussed possible routes of delivery and associated risks: [] special requests: [] Plans Covid status: discussed Flu vaccine: discussed Tdap vaccine: given Rhogam: na LARC form signed: completed. movement and labor precautions reviewed. Problem list reviewed and updated with the most current plan of care details and appropriate orders placed. Relevant counseling for the gestational age provided. Continue routine care and follow up unless otherwise noted in visit notes/problem list details OB Flowsheet Initial Weight: Not Recorded Date -?-?-?-?-?-?-?-?-?-?-?-?- EGA Weight BP Urine Prot -?-?-?-?-?-?-?-?-?-?-?-?- Glucose FHR FuHt Pres Dilation -?-?-?-?-?-?-?-?-?-?-?-?- Effaced St Visit Note 10/29/22 -?-?-?-?-?-?-?-?-?-?-?-?- 9w 4d 126 lb 4 oz 122/78 -?-?-?-?-?-?-?-?-?-?-?-?- 170 -?-?-?-?-?-?-?-?-?-?-?-?- JV- single live iup measuring 9weeks 5 days and consistent with LMP. desires NIPT. 11/24/22 -?-?-?-?-?-?-?-?-?-?-?-?- 13w 2d 129 lb 8 oz 124/79 -?-?-?-?-?-?-?-?-?-?-?-?- 155 -?-?-?-?-?-?-?-?-?-?-?--?- LC- no vb/crayecenia ng. discussed and declines AFP. anatomy scan ordered with MFM. 12/24/22 -?-?-?-?-?-?-?-?-?-?-?-?- 17w 4d 130 lb 96/62 1+ -?-?-?-?-?-?-?-?-?-?-?-?- Negative 155 -?-?-?-?-?-?-?-?-?-?-?-?- LC- no concerns. no vb/cramping. afp declined. 01/19/23 -?-?-?-?-?-?-?-?-?-?-?-?- 21w 2d 145 lb 125/80 Negative -?-?-?-?-?-?-?-?-?-?-?-?- Negative 150 21 -?-?-?-?-?-?-?-?-?-?-?-?- JV- no lof, vagi nal bleeding, or cramping. no complaints. 02/18/23 -?-?-?-?-?-?-?-?-?-?-?-?- 25w 4d 148 lb 4 oz 111/75 Nega tive -?-?-?-?-?-?-?-?-?-?-?-?- Negative 145 26 -?-?-?-?-?-?--?-?-?-?-?-?- SM- no vb lof go od fm no regualr ctx but hvaing samreen colin 03/16/23 -?-?-?-?-?-?-?-?-?-?-?-?- 29w 2d 160 lb 2 oz 120/77 Nega tive -?-?-?-?-?-?-?-?-?-?-?-?- Negative 140 30 -?-?-?-?-?-?-?-?-?-?-?-?- LC- no vb/ctx/lo f. good fm. increased vaginal discharge with odor. speculum exam. bv and genital culture obtained. urine cx sent for urine odor with burning 04/01/23 -?-?-?-?-?-?-?-?-?-?-?-?- 31w 4d 158 lb 8 oz 126/80 -?-?-?-?-?-?-?-?-?-?-?-?- 140 31 -?-?-?-?-?-?-?-?-?-?-?-?- SM- no vb lof go od fm no regular ctx co upper pressure 04/15/23 -?-?-?-?-?-?-?-?-?-?-?-?- 33w 4d 156 lb 4 oz 110/64 Nega tive -?-?-?-?-?-?-?-?-?-?-?-?- Negative 143 33 -?-?-?-?-?-?-?-?-?-?-?-?- LC- no vb.ctx/lo f. good fm. no concerns. larc signed. having leg cramps, will start magnesium supplements. 04/29/23 -?-?-?-?-?-?-?-?-?-?-?-?- 35w 4d 161 lb 4 oz 105/74 -?-?-?-?-?-?-?-?-?-?-?-?- 135 -?-?-?-?-?-?-?-?-?-?-?--?- LC- no lof/vb/ct x. had dec fm. reactive NST. 05/06/23 -?-?-?-?-?-?-?-?-?-?-?-?- 36w 4d 163 lb 123/78 Negative -?-?-?-?-?-?-?-?-?-?-?-?- Negative 140 35.5 0 -?-?-?-?-?-?-?-?-?-?-?-?- 50 -3 JV- no lof , vaginal bleeding, or dec fm. c/o pressure and some intermittent contractions. GBS collected. 05/13/23 -?-?-?-?-?-?-?-?-?-?-?-?- 37w 4d 168 lb 118/80 -?-?-?-?-?-?-?-?-?-?-?-?- 500 g/dL 140 36 -?-?-?-?-?-?-?-?-?-?-?-?- SM- no vb lof go od fm co irregular ctx, had glucose in urine but had waffles for breakfast, fingerstick is 05/20/23 -?-?-?-?-?-?-?-?-?-?-?-?- 38w 4d 167 lb 8 oz 115/80 Nega tive -?-?-?-?-?-?-?-?-?-?-?-?- Negative 150 38 2.5 -?-?-?-?-?-?-?-?-?-?-?-?- 50 -3 LC- no vb/ lof. no regular ctx. good fm. NST FHR Rate Baby A Baseline: 140 Variability:: Moderate Accelerations:: 15 x 15 Decelerations:: None NST Reactive:: Yes FHR Category:: Category I Uterine Activity:: q3-5 ROS Constitutional Constitutional: Reports systems reviewed and no addt'l complaints, except as documented ENT HEENT: Reports systems reviewed and no addt'l complaints, except as documented Cardiovascular Cardiovascular: Reports systems reviewed and no addt'l complaints, except as documented Respiratory/Chest Respiratory/Chest: Reports systems reviewed and no addt'l complaints, except as documented Gastrointestinal Gastrointestinal: Reports systems reviewed and no addt'l complaints, except as documented and nausea; Denies abdominal pain Genitourinary Genitourinary: Reports systems reviewed and no addt'l complaints, except as documented, contractions Details: present and frequency (regular ) and m ovement Details: present Musculoskeletal Musculoskeletal: Reports systems reviewed and no addt'l complaints, except as documented Integumentary Integumentary: Reports as per HPI Neurologic Neurologic: Reports systems reviewed and no addt'l complaints, except as documented Endocrine Endocrinology: Reports systems reviewed and no addt'l complaints, except as documented Vital Signs Vital Signs Vital Signs: 05/26/23 14:24 05/26/23 14:25 05/26/23 14:25 Temperature Temperature Source Pulse Rate 123 H Blood Pressure 111/80 BP Systolic 111 BP Diastolic 80 Pulse Ox 99 10/12/23 14:30 05/26/23 14:30 05/26/23 14:46 Temperature Temperature Source Temporal Pulse Rate 106 H Blood Pressure BP Systolic BP Diastolic Pulse Ox 98 05/26/23 14:46 05/26/23 15:05 05/26/23 15:05 Temperature 97.3 F L Temperature Source Pulse Rate 110 H Blood Pressure 146/73 H BP Systolic 146 BP Diastolic 73 Pulse Ox 05/26/23 15:05 05/26/23 15:09 05/26/23 15:10 Temperature Temperature Source Pulse Rate 106 H Blood Pressure 131/68 H BP Systolic 131 BP Diastolic 68 Pulse Ox 99 05/26/23 15:10 05/26/23 15:15 05/26/23 15:15 Temperature Temperature Source Pulse Rate 113 H Blood Pressure 116/73 BP Systolic 116 BP Diastolic 73 Pulse Ox 100 05/26/23 15:18 05/26/23 15:18 05/26/23 15:19 Temperature Temperature Source Pulse Rate 97 Blood Pressure 112/73 BP Systolic 112 BP Diastolic 73 Pulse Ox 98 05/26/23 15:19 05/26/23 15:23 05/26/23 15:23 Temperature Temperature Source Pulse Rate 96 108 H Blood Pressure BP Systolic BP Diastolic Pulse Ox 99 05/26/23 15:25 05/26/23 15:25 05/26/23 15:28 Temperature Temperature Source Pulse Rate 103 H 99 Blood Pressure 108/68 BP Systolic 108 BP Diastolic 68 Pulse Ox 05/26/23 15:28 05/26/23 15:29 05/26/23 15:29 Temperature Temperature Source Pulse Rate 93 Blood Pressure 110/74 BP Systolic 110 BP Diastolic 74 Pulse Ox 100 05/26/23 15:33 05/26/23 15:33 05/26/23 15:36 Temperature Temperature Source Pulse Rate 96 Blood Pressure 105/73 BP Systolic 105 BP Diastolic 73 Pulse Ox 99 05/26/23 15:36 05/26/23 15:38 05/26/23 15:38 Temperature Temperature Source Pulse Rate 93 96 Blood Pressure BP Systolic BP Diastolic Pulse Ox 98 05/26/23 15:40 05/26/23 15:40 05/26/23 15:43 Temperature Temperature Source Pulse Rate 91 99 Blood Pressure 117/70 BP Systolic 117 BP Diastolic 70 Pulse Ox 05/26/23 15:43 05/26/23 15:46 10/12/23 15:46 Temperature Temperature Source Pulse Rate 96 Blood Pressure 110/68 BP Systolic 110 BP Diastolic 68 Pulse Ox 100 05/26/23 15:50 05/26/23 15:50 05/26/23 15:55 Temperature Temperature Source Pulse Rate 110 H Blood Pressure 100/61 98/57 L BP Systolic 100 98 BP Diastolic 61 57 Pulse Ox 05/26/23 15:55 05/26/23 16:00 05/26/23 16:00 Temperature Temperature Source Pulse Rate 105 H 104 H Blood Pressure 101/56 L BP Systolic 101 BP Diastolic 56 Pulse Ox 05/26/23 16:04 05/26/23 16:04 05/26/23 16:09 Temperature Temperature Source Pulse Rate 93 Blood Pressure 102/56 L 100/58 L BP Systolic 102 100 BP Diastolic 56 58 Pulse Ox 05/26/23 16:09 05/26/23 16:14 05/26/23 16:14 Temperature Temperature Source Pulse Rate 112 H 108 H Blood Pressure 94/59 L BP Systolic 94 BP Diastolic 59 Pulse Ox 05/26/23 16:19 05/26/23 16:19 05/26/23 16:25 Temperature Temperature Source Pulse Rate 94 Blood Pressure 98/57 L 107/72 BP Systolic 98 107 BP Diastolic 57 72 Pulse Ox 05/26/23 16:25 05/26/23 16:27 05/26/23 16:27 Temperature Temperature Source Pulse Rate 99 119 H Blood Pressure BP Systolic BP Diastolic Pulse Ox 100 05/26/23 16:27 05/26/23 16:27 05/26/23 16:27 Temperature 97.5 F L Temperature Source Temporal Pulse Rate Blood Pressure BP Systolic BP Diastolic Pulse Ox 100 05/26/23 17:36 05/26/23 17:36 05/26/23 17:36 Temperature Temperature Source Temporal Pulse Rate 98 Blood Pressure 100/69 BP Systolic 100 BP Diastolic 69 Pulse Ox 05/26/23 17:50 05/26/23 17:50 05/26/23 17:36 Temperature 97.3 F L Temperature Source Pulse Rate 79 Blood Pressure BP Systolic BP Diastolic Pulse Ox 100 05/26/23 18:49 05/26/23 18:50 05/26/23 18:50 Temperature Temperature Source Temporal Pulse Rate 101 H Blood Pressure 119/77 BP Systolic 119 BP Diastolic 77 Pulse Ox 05/26/23 18:50 05/26/23 18:49 05/26/23 19:28 Temperature 97.4 F L Temperature Source Pulse Rate Blood Pressure 157/81 H BP Systolic 157 BP Diastolic 81 Pulse Ox 100 05/26/23 19:28 Temperature Temperature Source Pulse Rate 111 H Blood Pressure BP Systolic BP Diastolic Pulse Ox Weight Weight: 166 lb Body Mass Index (BMI) 29.4 Physical Exam Const alert, oriented x3 and healthy appearing Constitutional Narrative: uncomfortable with contractions HEENT normocephalic and moist oral mucous membranes Head and Scalp: atraumatic Neck full ROM, no lymphadenopathy, supple and thyroid normal General: trachea midline Thyroid: thyroid normal Lymph Lymphatic: no lymphadenopathy noted Chest inspection of chest normal Resp normal respiratory effort Cardio regular rate GI normal to inspection, nondistended, normoactive bowel sounds, soft to palpation and non-tender Inspection: gravid external exam normal Bimanual Exam - Vag & Uterus: uterus non-tender Manual OB Exam: estimated gestational size appropriate, presentation cephalic, dilated, effaced and station Extremity normal to inspection General Extremity: Negative for edema Skin no rashes or lesions noted Neuro deep tendon reflexes 2+ bilaterally Motor Exam: strength 5/5 throughout and clonus absent Psych mental status grossly normal Labs Labs Labs: Blood Type B POSITIVE Antibody Screen NEGATIVE Hct 36.0 % (37-47) L Hgb 11.2 g/dL (12.0-15.0) L Syphilis Total Ab Non-reactive Rubella IgG Antibody Reactive (Nonreactive) Hep Bs Antigen Non-Reactive (Nonreactive) Hepatitis C Antibody Non-Reactive (Nonreactive) Chlamydia DNA (SNOW) Negative (Negative) N.gonorrhoeae DNA (SNOW) Negative (Negative) HIV 1&2 Antibody Non-Reactive (Nonreactive) Glucose 1 Hr 50 gm 98 mg/dL (70-140) Assessment & Plan (1) Supervision of normal : COMMENT: PRR MARILUZ 05/30/23 Jerry Bridges-Spouse Elfego GBS negative (2) : QUALIFIERS: Weeks of gestation: 38 weeks Qualified Code(s): Z3 A.38 - 38 weeks gestation of COMMENT: NIPT low risk, declined carrier and ntd screening, nl anatomy (3) Active labor at term: COMMENT: GBS negative epidural done AROM clear fluid PLAN: Plan Patient presents IAL, plan expectant management for , AROM clear fluid. Pain management: Plans epidural. GBS negative. Management of any complications: None I have reviewed the [facility] and made any clinically relevant updates.
--- NOTE | 2023-05-26 19:45 | OP.PCM_ITS ---
Maternal Data Information MARILUZ Calculator Estimated Delivery Date Method Current Current Estimate 05/30/23 LMP (Certain) 39w 3d Vaginal Delivery Operative Information Date of Procedure: 05/26/23 Pre-Operative Diagnosis: see a/p diagnoses Post-Operative Diagnosis: same Surgery / Procedure Performed: Spontaneous Vaginal Delivery Type of Anesthesia: Epidural Special Medications: none Estimated Blood Loss: 200 Fluids Replaced: crystalloid Findings Description of Procedure: Patient began pushing and delivered the head in the MARCELA presentation. The head was delivered atraumatically . The anterior and posterior shoulders delivered without complication followed by the rest of the infant and the infant was placed on the maternal abdomen. Delayed cord clamping was employed for approximately 60 seconds. Cord was clamped and cut and gentle traction was applied to the cord and the placenta delivered spontaneously immediately following it was noted to be intact with three-vessel cord. The perineum and vagina were inspected and noted to have no laceration. EBL was 200 cc. Patient and infant tolerated delivery well. Amniotic Fluid Description: Clear Placental Delivery Description: Spontaneous Placenta Disposition: [facility] Cord Vessel Description: 3 Vessels Cord Entanglement: None Delayed Cord Clamping: Yes Post Vaginal Delivery Medications Given After Delivery: IV Pitocin Episiotomy Description: None Complication Complications: None Procedures Urinary/Genital [id number]: [id number] Vaginal Delivery [facility]
--- NOTE | 2023-05-26 19:48 | DCINST_ITS ---
Discharge Instructions Diet Discharge Diet: No restrictions Activity Discharge Activity: Return to Normal Activity, May Not Drive (while taking narcotic pain medications.) and May Shower May resume sexual activity in: 4-6 weeks Dressing / Incision Call your doctor if your incision/area has: Continuous Slow Oozing, Sudden Increased Bleeding, Increased Pain/ Swelling, Increased Redness and Foul Smelling Discharge Follow Up Care Please Follow Up With: Ofelia Ramirez MD When: Call [phone] to make an appointment with your doctor in 6 weeks. If you had elevated blood pressure or 4th degree laceration, you will need to be seen in 2 weeks. Test Results: Test results from this visit will be discussed in further detail at your follow- up appointment, if applicable. Discharge Plan Admission Admit Date/Time: 05/26/23 14:00 Attending Provider: Ofelia Ramirez Primary Care Provider: Care Physician,Yaa Primary Discharge Orders/Prescriptions Prescriptions: No Action prenat.vits,marc,[id number] Tablet 1 tab PO DAILY metoclopramide HCl [Reglan] 10 mg tablet 10 mg PO Q6H PRN (Reason: nausea and vomiting) Qty: 60 0RF Referrals / Follow Up: Care Physician,No Primary [Primary Care Provider] - Disposition Disposition (needs filled in before D/C Order can be placed): Home, Self Care
[2023-05-26] MEDS: Naproxen 500 MG Tablet PO (21:51)
[2023-05-27] VITALS (7 sets, daily range): BP systolic 101–117; BP diastolic 55–72; PULSE 73–91; RESP 16; TEMP 35.8–36.9; O2SAT 97–98
[2023-05-27] MEDS: Acetaminophen 500 MG Tablet 1000 MG PO ×3 (04:03→18:56)
--- NOTE | 2023-05-27 07:43 | PN.OBGYN_ITS ---
Subjective Subjective Patient doing well without complaints. Tolerating PO. Ambulating and voiding without difficulty. Feeding well. Denies chest pain, shortness of breath, calf pain/swelling, fevers, chills, lightheadedness. Objective Data Objective Data Vital Signs: Vital Signs Temp Pulse Resp BP Pulse Ox O2 Del Method 98.4 F 88 16 101/61 98 Room Air 05/27/23 03:52 05/27/23 03:52 05/27/23 03:52 05/27/23 03:52 05/27/23 03:52 05/27/23 03:52 Oxygen Delivery Method Room Air Weight: 166 lb Body Mass Index (BMI) 29.4 Intake & Output: Intake and Output for Last 24 Hours 05/25/23 05/26/23 05/27/23 23:59 23:59 23:59 Intake Total 1587.06 / 1587.06 Output Total 900 / 900 600 / 600 Balance 687.06 / 687.06 -600 / -600 Lab / Micro Data Attestation: I reviewed the patient's lab results. 05/26/23 14:35 Labs: Laboratory Results - last 24 hr 05/26/23 14:35: WBC 9.8, RBC 4.51, Hgb 11.2 L, Hct 36.0 L, MCV 79.8 L, MCH 24.8 L, MCHC 31.1 L, RDW Std Deviation 41.2, RDW Coeff of Shiv 14.2, Plt Count 178, MPV 12.4 H, Immature Gran % (Auto) 0.400, Neut % (Auto) 75.7 H, Lymph % (Auto) 17.4 L, Upton % (Auto) 5.7, Eos % (Auto) 0.4, Baso % (Auto) 0.4, Absolute Neuts (auto) 7.4, Absolute Lymphs (auto) 1.70, Nucleated RBC % 0, Syphilis Total Ab Non-reactive, Blood Type B POSITIVE, Antibody Screen NEGATIVE ROS Constitutional Constitutional: Reports systems reviewed and no addt'l complaints, except as documented; Denies anorexia or headache(s) Cardiovascular Cardiovascular: Reports systems reviewed and no addt'l complaints, except as documented; Denies dizziness, dyspnea, nausea or tachypnea Respiratory/Chest Respiratory/Chest: Reports systems reviewed and no addt'l complaints, except as documented; Denies cough, dyspnea, shortness of breath at rest or tachypnea Gastrointestinal Gastrointestinal: Reports systems reviewed and no addt'l complaints, except as documented; Denies abdominal pain, constipation or nausea Genitourinary Genitourinary: Reports systems reviewed and no addt'l complaints, except as documented; Denies burning urination, difficulty urinating, dysuria, urinary dalton quency or urinary incontinence Musculoskeletal Musculoskeletal: Reports systems reviewed and no addt'l complaints, except as documented Integumentary Integumentary: Reports systems reviewed and no addt'l complaints, except as documented Neurologic Neurologic: Reports systems reviewed and no addt'l complaints, except as documented; Denies abnormal speech, dizziness or headache(s) Psychiatric Psychiatric: Reports systems reviewed and no addt'l complaints, except as documented Endocrine Endocrinology: Reports systems reviewed and no addt'l complaints, except as documented Hematologic/Lymphatic Hematologic/Lymphatic: Reports systems reviewed and no addt'l complaints, except as documented Physical Exam Const alert, oriented x3 and no apparent distress Neck full ROM Resp normal respiratory effort, normal air movement and no retractions Effort and Inspection: able to speak in complete sentences and symmetric chest movement GI soft to palpation Bladder / Kidney Exam: bladder normal to palpation Uterus Palpation: uterus fundus firm Extremity normal to inspection and full ROM Psych mental status grossly normal, thought process normal and cooperative Assessment & Plan (1) Vaginal delivery: COMMENT: stevie pyle boy kasxochilt IAL 39 PLAN: s/p PPD # 1 1. routine post delivery care 2. breast feeding- support given 3. rh positive 4. rubella immune 5. Discharge home Charges/Coding Multi Select Codes Urinary/Genital Urinary/Genital CPT Codes: No Charge
--- NOTE | 2023-05-27 07:45 | DCINST_ITS ---
Discharge Instructions Diet Discharge Diet: No restrictions Activity May resume sexual activity in: 4-6 weeks Dressing / Incision Call your doctor if your incision/area has: Continuous Slow Oozing, Sudden Increased Bleeding, Increased Pain/ Swelling, Increased Redness and Foul Smelling Discharge Follow Up Care Please Follow Up With: Ofelia Ramirez MD Test Results: Test results from this visit will be discussed in further detail at your follow- up appointment, if applicable. Discharge Plan Admission Admit Date/Time: 05/26/23 14:00 Attending Provider: Ofelia Ramirez Primary Care Provider: Care PhysicianYaa Primary Discharge Orders/Prescriptions Prescriptions: No Action prenat.vits,marc,[id number] Tablet 1 tab PO DAILY metoclopramide HCl [Reglan] 10 mg tablet 10 mg PO Q6H PRN (Reason: nausea and vomiting) Qty: 60 0RF Referrals / Follow Up: Care Physician,No Primary [Primary Care Provider] - Disposition Disposition (needs filled in before D/C Order can be placed): Home, Self Care
[2023-05-27] MEDS: Naproxen 500 MG Tablet PO (13:01)
[2023-05-28 23:18] VITALS: BP 113/62; PULSE 86
[2023-05-28 23:20] VITALS: TEMP 36.7
== END 2023-05-27 20:00 | disposition home or self-care (01) | DRG 807 ==
PROVIDERS: Admitting Provider Obstetrics & Gynecology; Referring Provider Obstetrics & Gynecology; Visit Provider Obstetrics & Gynecology
DX: O80 Encounter for full-term uncomplicated delivery (principal); Z37.0 Single live birth; Z3A.38 38 weeks gestation of pregnancy
CPT/HCPCS: 59025; 59050; 85025; 86780; 86850; 86900; 86901; 99221; J7120; A4216; G0378; J2405